=== PATIENT | female | born 1970 | race Caucasian/White ===

== ENCOUNTER 2017-05-06 12:04 | Inpatient (IN) | payer BC ==
[2017-05-06] MEDS ORDERED: NALOXONE 0.4 MG/ML 1 ML VIAL IV PRN ×2 (12:25→14:54)
--- NOTE | 2017-05-06 12:30 | ED ---
General Adult HPI - General Chief complaint: Abdominal Pain Stated complaint: appendicitis Time Seen by Provider: 05/06/17 12:08 Source: patient, RN notes reviewed, old records reviewed Mode of arrival: EMS Limitations: no limitations - History of Present Illness Initial comments: 46-year-old female presenting with lower abdominal pain. Patient was transferred from outside hospital. She was found to have acute appendicitis. Symptoms have been present since yesterday. She last ate at yesterday at approximately 8 PM. She did have some nausea, as well as several episodes of diarrhea. Denies significant vomiting. Patient has been febrile. She has past surgical history of cholecystectomy. Patient denies any chest pain or shortness of breath. Denied any other complaints besides lower abdominal pain which was dull aching in nature. Described as bilateral however worse on the right. - Related Data Home Medications Medication Instructions Recorded Confirmed Lisinopril [Zestril] 20 mg PO DAILY 11/28/15 12/01/15 buPROPion XL [Wellbutrin Xl] 150 mg PO DAILY 11/28/15 12/01/15 Raloxifene [Evista] 60 mg PO DAILY 12/01/15 12/01/15 Allergies Allergy/AdvReac Type Severity Reaction Status Date / Time Penicillins Allergy Rash/Hives Verified 05/06/17 12:20 ibuprofen AdvReac Nausea & Verified 05/06/17 12:20 Vomiting Review of Systems ROS Statement: Those systems with pertinent positive or pertinent negative responses have been documented in the HPI. ROS Other: All systems not noted in ROS Statement are negative. Past Medical History Past Medical History: Hypertension Additional Past Medical History / Comment(s): vertigo, Lobular Carcinoma in situ of right breast, 2 lumps detected in left breast. History of Any Multi-Drug Resistant Organisms: None Reported Past Surgical History: Section, Cholecystectomy Additional Past Surgical History / Comment(s): uterine polyps removed, uterine ablation, lumpectomy right breast September 2014 Past Anesthesia/Blood Transfusion Reactions: No Reported Reaction Past Psychological History: No Psychological Hx Reported Smoking Status: Never smoker Past Alcohol Use History: Occasional Past Drug Use History: None Reported - Past Family History Mother Family Medical History: Cancer Additional Family Medical History / Comment(s): lung cancer General Exam Limitations: no limitations General appearance: alert, in no apparent distress Head exam: Present: atraumatic, normocephalic Eye exam: Present: normal appearance, PERRL ENT exam: Present: normal exam Neck exam: Present: normal inspection. Absent: tenderness, meningismus Respiratory exam: Present: normal lung sounds bilaterally. Absent: respiratory distress Cardiovascular Exam: Present: regular rate, normal rhythm GI/Abdominal exam: Present: soft, tenderness (Bilateral lower quadrants, worse on the right). Absent: guarding, rebound Extremities exam: Present: normal inspection, normal capillary refill. Absent: pedal edema Neurological exam: Present: alert, oriented X3. Absent: motor sensory deficit Psychiatric exam: Present: normal affect, normal mood Skin exam: Present: warm, dry, intact. Absent: cyanosis, diaphoretic Course Vital Signs 05/06/17 12:10 Temperature 100.3 F H Pulse Rate 110 H Respiratory 16 Rate Blood Pressure 128/75 O2 Sat by Pulse 95 Oximetry Medical Decision Making - Medical Decision Making 46-year-old female transferred with acute appendicitis. CT reveals dilated appendix at 9.5 mm with adjacent fat stranding consistent with acute appendicitis. White blood cell count elevated at 13.8, hemoglobin stable 14.3, platelets 307, potassium 3.4, sodium 138, creatinine normal. Case is discussed with Dr. Burris, he will accept admission, patient will be taken to the operating room from the emergency department. Disposition Clinical Impression: Acute appendicitis Disposition: ADMITTED IP TO THIS [facility] Condition: Stable Referrals: Nonstaff,Physician [Primary Care Provider] - 1-2 days Decision to Admit Reason: Admit from EC Decision Date: 05/06/17 Decision Time: 12:30
[2017-05-06] MEDS: SODIUM CHLORIDE 0.9% 1,000 ML IV SCH ×2 (12:31→16:56)
[2017-05-06] MEDS ORDERED: IV FLUID CONTINUATION 1,000 ML IV ONE (12:45)
--- NOTE | 2017-05-06 12:56 | P.GSHP ---
History of Present Illness H&P Date: 05/06/17 Chief Complaint: Appendicitis This a 46-year-old female who was transferred from [facility]. Patient had a 24 hour history of abdominal pain nausea. She underwent CAT scan at the [facility] found evidence of acute appendicitis. Patient states that she has some pain in the right lower quadrant. Past Medical History Past Medical History: Hypertension Additional Past Medical History / Comment(s): vertigo, Lobular Carcinoma in situ of right breast, 2 lumps detected in left breast. History of Any Multi-Drug Resistant Organisms: None Reported Past Surgical History: Section, Cholecystectomy Additional Past Surgical History / Comment(s): uterine polyps removed, uterine ablation, lumpectomy right breast September 2014 Past Anesthesia/Blood Transfusion Reactions: No Reported Reaction Past Psychological History: No Psychological Hx Reported Smoking Status: Never smoker Past Alcohol Use History: Occasional Past Drug Use History: None Reported - Past Family History Mother Family Medical History: Cancer Additional Family Medical History / Comment(s): lung cancer Medications and Allergies Home Medications Medication Instructions Recorded Confirmed Type Lisinopril [Zestril] 20 mg PO DAILY 11/28/15 05/06/17 History buPROPion HCL [Wellbutrin SR] 150 mg PO BID 05/06/17 05/06/17 History Allergies Allergy/AdvReac Type Severity Reaction Status Date / Time Penicillins Allergy Rash/Hives Verified 05/06/17 12:50 ibuprofen AdvReac Nausea & Verified 05/06/17 12:50 Vomiting Surgical - Exam Vital Signs Temp Pulse Resp BP Pulse Ox 100.3 F H 110 H 16 128/75 95 05/06/17 12:10 05/06/17 12:10 05/06/17 12:10 05/06/17 12:10 05/06/17 12:10 - General well developed, no distress - Eyes PERRL - ENT normal pinna - Neck no masses - Respiratory normal expansion - Cardiovascular Rhythm: regular - Abdomen Mild right lower quadrant tenderness. Her is no rebound or guarding. Abdomen: soft Assessment and Plan Assessment: Acute appendicitis. Patient will undergo laparoscopic appendectomy.
[2017-05-06] MEDS ORDERED: DEXAMETHASONE SOD PHOSPHATE 10 MG/ML 1 ML VIAL IV ONE (13:19)
[2017-05-06] MEDS ORDERED: ONDANSETRON 4 MG/2 ML VIAL IVP ONE (13:19)
[2017-05-06] MEDS ORDERED: HEPARIN SODIUM,PORCINE 5,000 UNIT/ML 1 ML VIAL SQ ONE (13:20)
[2017-05-06] MEDS ORDERED: NEOSTIGMINE 1 MG/ML 10 ML VIAL ONE (13:28)
[2017-05-06] MEDS ORDERED: LIDOCAINE 1% INJ 10MG/ML (20 ML MDV) ONE (13:28)
[2017-05-06] MEDS ORDERED: fentaNYL (PF) 50 MCG/ML 2 ML AMP ONE (13:28)
[2017-05-06] MEDS ORDERED: CLINDAMYCIN 150 MG/ML 4 ML VIAL ONE (13:28)
[2017-05-06] MEDS ORDERED: GLYCOPYRROLATE 0.2 MG/ML 2 ML VIAL ONE (13:28)
[2017-05-06] MEDS ORDERED: PROPOFOL 10 MG/ML 20 ML VIAL IV ONE (13:28)
[2017-05-06] MEDS ORDERED: ROCURONIUM BROMIDE 10 MG/ML 10 ML VIAL IV ONE (13:28)
[2017-05-06] MEDS ORDERED: MIDAZOLAM 2 MG/2 ML VIAL ONE (13:28)
[2017-05-06] MEDS ORDERED: SUCCINYLCHOLINE CHLORIDE 100 MG/5 ML SYR IV ONE (13:28)
[2017-05-06] MEDS: CLINDAMYCIN 600 MG in DEXTROSE 5% IN WATER 50 ML IVPB STA ×4 (13:42→13:53)
[2017-05-06] MEDS ORDERED: BUPIVACAINE (PF) 0.5% 30 ML VIAL SQ ONE ×2 (13:59)
[2017-05-06] MEDS ORDERED: LACTATED RINGERS 1,000 ML IV ONE ×2 (14:35→14:54)
[2017-05-06] MEDS ORDERED: HYDROmorphone 0.5 MG/0.5 ML SYRINGE IVP ONE ×2 (14:53→15:04)
[2017-05-06] MEDS ORDERED: ONDANSETRON 4 MG/2 ML VIAL IVP PRN (14:54)
[2017-05-06] MEDS ORDERED: HYDROmorphone 2 MG/ML 1 ML SYRINGE IVP PRN (14:54)
--- NOTE | 2017-05-06 14:59 | P.OP ---
Date of Procedure: 05/06/17 Preoperative Diagnosis: Acute appendicitis Postoperative Diagnosis: Acute appendicitis Procedure(s) Performed: Laparoscopic appendectomy Anesthesia: CORINE Surgeon: Santino Burris Estimated Blood Loss (ml): 5 Pathology: other (Appendix) Condition: stable Disposition: PACU Description of Procedure: Anuradha patient's placed on the operating table in the supine position. The patient received general anesthesia. The abdomen was prepped and draped in the usual sterile fashion. The skin was anesthetized 1% local Xylocaine at the trocar sites. Using an 11 blade the skin was incised at the umbilicus. The umbilicus was grasped with a Nickolas clamp and then a Veress needle was placed into the peritoneal cavity. Position of the Veress needle was confirmed with positive drop test. After adequate insufflation a 5 mm trocar was placed into the peritoneal cavity. The abdomen was further insufflated. And then the laparoscope was placed in the peritoneal cavity. Next a 5 mm trocar was placed in the midline suprapubic position. And then a 10 mm trocar was placed in the midline epigastric position. The patient was rotated with the right side up and in Trendelenburg. The appendix was visualized. The appendix appeared to be inflamed. The appendix was grasped and then using the Harmonic scissors the mesoappendix was divided. A PDS Endoloop was then placed around the base of the appendix. And then the appendix was divided using Harmonic scissors. The appendix was placed into an Endo Catch and brought out through the 10 mm trocar site. The abdomen was irrigated. There is no bleeding seen. The trochars withdrawn. The skin was closed interrupted 3-0 Monocryl suture. Dermabond dressing was applied. Patient was sent to recovery room in stable condition.
[2017-05-06] MEDS: KETOROLAC 30 MG/ML 1 ML VIAL IVP SCH ×2 (16:55→21:17)
[2017-05-06] MEDS: DOCUSATE 100 MG CAP PO SCH (21:17)
[2017-05-06] MEDS: buPROPion SR 150 MG TABLET.ER PO SCH (21:17)
--- NOTE | 2017-05-06 21:47 | CONS ---
CONSULTATION REASON FOR CONSULTATION: Advice regarding hypertension and other multiple medical issues, requested by Dr. Burris. HISTORY OF PRESENT ILLNESS: This 46-year-old woman with a past medical history of hypertension, history of vertigo, history of lobular carcinoma in situ of the right breast, history of appendectomy, section, being followed by Dr. Anaya in the outpatient setting, was admitted after laparoscopic appendectomy. There is no history of any chest pain, no history of palpitations, no history of headache, loss of consciousness, nausea, vomiting, diarrhea, fever, rigor or chills at this time. PAST MEDICAL HISTORY: 1. Hypertension. 2. Vertigo. 3. Lobular carcinoma. 4. section. 5. History of cholecystectomy. MEDICATIONS: Medications prior to admission include: 1. Wellbutrin SR 150 mg p.o. b.i.d. 2. Zestril 20 mg p.o. daily. ALLERGIES: 1. PENICILLIN. 2. IBUPROFEN. FAMILY HISTORY: History of lung cancer in the family. SOCIAL HISTORY: History of occasional alcohol. No history of smoking. REVIEW OF SYSTEMS: ENT: No diminished hearing. No diminished vision. CARDIOVASCULAR SYSTEM: No angina, palpitations. RESPIRATORY SYSTEM: No cough, hemoptysis. GI: No nausea, vomiting, diarrhea. : No dysuria or retention. NERVOUS SYSTEM: No numbness, weakness. ALLERGY/IMMUNOLOGY: No asthma, hayfever. MUSCULOSKELETAL: As mentioned earlier. HEMATOLOGY/ONCOLOGY: No history of anemia. ENDOCRINE: No history of diabetes, hypothyroidism. CONSTITUTIONAL: As mentioned earlier. DERMATOLOGY: Negative. RHEUMATOLOGY: Negative. PSYCHIATRY: As mentioned earlier. PHYSICAL EXAMINATION: Patient is alert, oriented x3. Pulse 95, blood pressure 104/59, respiration 18, temperature 98.5, pulse ox 94% on room air. HEENT: Conjunctivae normal. NECK: No jugular venous distention. No carotid bruit. No lymph node enlargement. CARDIOVASCULAR SYSTEM: S1, S2 muffled. No S3. No S4. RESPIRATORY SYSTEM: Breath sounds diminished at the bases. No rhonchi. No crackles. ABDOMEN: Soft. Status post surgery. LEGS: No edema. No swelling. NERVOUS SYSTEM: Higher functions as mentioned earlier. Moves all 4 limbs. No focal motor symptoms. LYMPHATICS: No lymph node palpable in neck, axillae or groin. SKIN: No ulcer, rash, bleeding. JOINTS: No active deforming arthropathy. LABS/INVESTIGATIONS: Not available. ASSESSMENT: 1. Status post laparoscopic appendectomy for appendicitis. 2. History of hypertension. 3. History of vertigo. 4. History of lobular carcinoma in situ of the breast. 5. History of cholecystectomy. RECOMMENDATIONS AND DISCUSSION: In this 46-year-old woman, admitted after surgery, at this time I recommend to continue current medications, continue symptomatic treatment. I recommend resuming the home medications. The patient is on lisinopril and bupropion. Otherwise, incentive spirometry. DVT prophylaxis. Will follow the patient closely with you. The patient may be asked to follow up with the primary physician closely. Thank you, Dr. Burris, for letting us participate in the care of this patient. MMODL / IJN: [id number] /
[2017-05-07] MEDS: KETOROLAC 30 MG/ML 1 ML VIAL IVP SCH ×2 (03:30→10:51)
[2017-05-07] MEDS: HYDROcodone/APAP 5-325MG 1 EACH TAB PO PRN ×2 (07:19→13:33)
[2017-05-07] MEDS: DOCUSATE 100 MG CAP PO SCH (07:24)
[2017-05-07] MEDS: buPROPion SR 150 MG TABLET.ER PO SCH (07:24)
[2017-05-07 08:43] VITALS: BP 110/61; PULSE 87; RESP 18; TEMP 98
[2017-05-07] MEDS ORDERED: ENOXAPARIN 40 MG/0.4 ML SYRINGE SQ SCH (09:00)
[2017-05-07] MEDS ORDERED: LISINOPRIL 20 MG TAB PO SCH (09:00)
[2017-05-07] MEDS: SODIUM CHLORIDE 0.9% 1,000 ML IV SCH (10:48)
--- NOTE | 2017-05-07 10:57 | P.DS ---
Providers Date of admission: 05/06/17 12:26 Expected date of discharge: 05/07/17 Attending physician: Santino Burris Consults: 05/06/17 14:54 Consult Physician Routine Consulting Provider: Jazmine Pisano Consult Reason/Comments: Medical management Do you want consulting provider notified?: Yes Primary care physician: [facility] Course: 46-year-old female who was transferred from [facility] who is being seen for a chief complaint of 24-hour abdominal discomfort with nausea vomiting. Patient underwent CAT scan at the hospital which showed evidence of an acute appendicitis. Patient states the pain was in the right lower quadrant. Patient was seen by surgical service. Patient does have a past surgical history of a cholecystectomy. Patient elected to undergo on May 06 laparoscopic appendectomy for acute appendicitis. There were no postop events. Surgical site dry. Dermabond dressings to the surgical site. Patient was felt to be hemodynamically stable and appropriate proceed with a discharge to home Impression discharge diagnoses Persistent right lower quadrant abdominal pain suspect due to acute appendicitis CAT scan abdomen and pelvis evidence of an acute appendicitis Postop May 06 laparoscopic appendectomy for acute appendicitis The above impression and plan of care have been discussed and directed by signing physician. Carlotta Eugene nurse practitioner acting as scribe for signing physician. Patient Condition at Discharge: Stable Plan - Discharge Summary Discharge Rx Participant: Yes New Discharge Prescriptions: New HYDROcodone/APAP 5-325MG [[place] 5-325] 2 each PO Q6HR PRN #15 tab PRN Reason: Moderate To Severe Pain Acetaminophen Tab [Tylenol Tab] 650 mg PO Q4H PRN #30 tablet PRN Reason: Mild Breakthrough Pain Docusate [Colace] 100 mg PO DAILY PRN #30 capsule PRN Reason: Constipation Continue Lisinopril [Zestril] 20 mg PO DAILY buPROPion HCL [Wellbutrin SR] 150 mg PO BID Discharge Medication List Lisinopril [Zestril] 20 mg PO DAILY 11/28/15 [History] buPROPion HCL [Wellbutrin SR] 150 mg PO BID 05/06/17 [History] Acetaminophen Tab [Tylenol Tab] 650 mg PO Q4H PRN #30 tablet 05/07/17 [Rx] Docusate [Colace] 100 mg PO DAILY PRN #30 capsule 05/07/17 [Rx] HYDROcodone/APAP 5-325MG [[place] 5-325] 2 each PO Q6HR PRN #15 tab 05/07/17 [Rx] Follow up Appointment(s)/Referral(s): Nonstaff,Physician [REFERRING] - 1-2 days Santino Burris MD [STAFF PHYSICIAN] - 1 Week Activity/Diet/Wound Care/Special Instructions: No tub bath for six weeks. Shower daily. No lifting over 10 pounds for the next 6 weeks. May use ice packs to surgical site. No driving while taking narcotic for pain. Discharge Disposition: HOME SELF-CARE
--- NOTE | 2017-05-07 12:56 | PN ---
PROGRESS NOTE DATE OF SERVICE: 05/07/2017 This is a 46-year-old woman who was admitted after laparoscopic appendectomy for acute appendicitis, improving significantly. No chest pain. No palpitations. No fever. PHYSICAL EXAM: Alert and oriented x3. Pulse 80, blood pressure 105/60, respirations 16, temperature is 97.4, pulse ox 98% room air. HEENT: Normal. NECK: No jugular venous distension. CARDIOVASCULAR: S1, S2, muffled. RESPIRATORY: Breath sounds diminished at the bases, no rhonchi, no crackles. Abdomen is soft, status post surgery. LEGS: No edema. No swelling. CENTRAL NERVOUS SYSTEM: No focal deficits. LABS: Not available. ASSESSMENT: 1. Status post laparoscopic appendectomy for appendicitis. 2. History of hypertension. 3. History of vertigo. 4. History of lobular carcinoma in situ of the breast. 5. History of cholecystectomy. RECOMMENDATION: Recommend to continue with the current management and symptomatic treatment. Continue with incentive spirometry and DVT prophylaxis. Will resume the home medications when the patient is discharged and follow up closely with primary physician in the outpatient setting. Thank you, Dr. Burris. MMEPIFANIOL / MUN: [id number] /
== END 2017-05-07 13:48 | disposition home or self-care (01) | DRG 343 ==
LOC: EC 12:04 → 2ORWHC 12:26 → 5MS5E 15:02
PROVIDERS: ADMIT Surgery; ATTEND Surgery
PROC: 0DTJ4ZZ Resection of Appendix, Percutaneous Endoscopic Approach (ICD-10-PCS; principal; 2017-05-06 11:00)
DX: K35.80 Unspecified acute appendicitis (principal); I10 Essential (primary) hypertension; Z79.899 Other long term (current) drug therapy; Z80.1 Family history of malignant neoplasm of trachea, bronchus and lung; Z85.3 Personal history of malignant neoplasm of breast; Z88.0 Allergy status to penicillin; Z88.6 Allergy status to analgesic agent
CPT/HCPCS: 88304; 99285

== ENCOUNTER → 2017-12-05 | Outpatient (CLI) | payer BC ==
[2017-12-05 14:41] VITALS: BP 144/84; PULSE 93; BMI 29.6
--- NOTE | 2017-12-05 15:09 | P.GSHP ---
History of Present Illness H&P Date: 12/05/17 The patient is a 47-year-old white female who is status post bilateral mastectomies approximately December 2015. 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 Her pathology reports are not present at this time and we will request them to be obtained from [facility]. She had immediate reconstruction at the time of her surgery. She did not have any chemotherapy nor did she have any radiation therapy. She is not taking any hormonal therapy. She was seen by medical oncology and this was not recommended. The patient complains at this time of pain in her right chest wall. Patient has a change in her right chest wall, with some asymetry of the implant and some pulling in her right chest wall. The patient did have BRCA1 gene testing done and this was negative. Patient was taking raloxifene for approximately 1 year prior to the diagnosis of cancer. After her surgery she no longer was recommended to take raloxifene. STAGE 0 on the right side unsure of Stage on the left side Family History: mother: lung Hormonal history: menarche: 11 : 3, 2 children, first at 24, breast fed: no ablation at 39 without periods after that BCP: no hormone: none Past Surgical History: 1. gallbladder 2. blateral mastectomy with reconstruction 3. appendix 4. 5. right lumpectomy prior to mastectomy 6. uterine ablation Past Medical History: 1. HTN Social History: smoke: no alcohol: weekends drugs: no - Constitutional Constitutional: Reports sweats - EENT Eyes: denies blurred vision, denies pain Ears: deny: decreased hearing, tinnitus Ears, nose, mouth and throat: Denies headache, Denies sore throat - Breasts Breasts: bilateral: as per HPI - Cardiovascular Cardiovascular: Reports high blood pressure - Respiratory Respiratory: Denies cough, Denies 7 - Gastrointestinal Gastrointestinal: Denies abdominal pain, Denies diarrhea, Denies nausea, Denies vomiting - Genitourinary (Female) Genitourinary: Denies dysuria, Denies hematuria - Musculoskeletal Musculoskeletal: Denies myalgias - Integumentary Integumentary: Denies pruritus, Denies rash - Neurological Neurological: Denies numbness, Denies weakness - Psychiatric Psychiatric: Reports anxiety, Reports depression - Endocrine Endocrine: Denies fatigue, Denies weight change - Hematologic/Lymphatic Comment: none - Allergic/Immunologic Comment: as above Past Medical History Past Medical History: Cancer, Hypertension Additional Past Medical History / Comment(s): vertigo, Lobular Carcinoma in situ of right breast, 2 lumps detected in left breast. (HAD BOTH REMOVED) History of Any Multi-Drug Resistant Organisms: None Reported Past Surgical History: Appendectomy, Section, Cholecystectomy Additional Past Surgical History / Comment(s): uterine polyps removed, uterine ablation, MARIFER MASECTOMIES/RECONSTRUCTIVE SX/IMPLANTS, 2 C-SECTIONS, Past Anesthesia/Blood Transfusion Reactions: No Reported Reaction Smoking Status: Never smoker - Past Family History Mother Family Medical History: Cancer Additional Family Medical History / Comment(s): -lung cancer Father History Unknown: Yes Medications and Allergies Home Medications Medication Instructions Recorded Confirmed Type Lisinopril [Zestril] 20 mg PO DAILY 11/28/15 05/06/17 History buPROPion HCL [Wellbutrin SR] 150 mg PO BID 05/06/17 05/06/17 History Acetaminophen Tab [Tylenol Tab] 650 mg PO Q4H PRN #30 tablet 05/07/17 Rx Docusate [Colace] 100 mg PO DAILY PRN #30 capsule 05/07/17 Rx HYDROcodone/APAP 5-325MG [[place] 2 each PO Q6HR PRN #15 tab 05/07/17 Rx 5-325] Levofloxacin [Levaquin] 500 mg PO DAILY #7 tab 05/07/17 Rx Allergies Allergy/AdvReac Type Severity Reaction Status Date / Time Penicillins Allergy Rash/Hives Verified 05/06/17 15:16 ibuprofen AdvReac Nausea & Verified 05/06/17 15:16 Vomiting Surgical - Exam - General well developed, well nourished, no distress - Eyes normal ocular movement, no icteric - ENT no hearing loss, no congestion - Neck no masses, trachea midline - Respiratory normal respiratory effort, clear to auscultation - Cardiovascular Rhythm: regular Heart Sounds: normal: S1, S2 - Abdomen Abdomen: soft, non tender, no guarding, no rigid, no rebound - Neurologic no disoriented, no combative - Psychiatric oriented to time, oriented to person, oriented to place, speech is normal, memory intact Breast examination: Right breast: The patient has a reconstructed right breast it is somewhat asymmetric to the left breast but there is no evidence of any recurrent cancer or nodularity of concern within the right chest wall Right axilla: No adenopathy of concern Left breast: The patient has a reconstructed left breast, there is no evidence of any recurrent cancer nodularity of concern within the left chest wall Left axilla: No adenopathy of concern Assessment and Plan Assessment: Impression: 1. Patient status post bilateral mastectomies with bilateral reconstruction 2. The muscle flexes moving the implant making it uncomfortable for the patient , the left does not flex involuntarily 3. Aching discomfort in the right chest wall 4. Hypertension Plan: 1. The patient is interested in seeking a opinion from a second plastic surgeon , we have discussed the possibility of a TRAM flap 2. Medical management of hypertension 3. At this time the patient does not have any evidence of recurrent cancer 4. Have requested that her pathology reports be obtained from [facility] 5. Follow up in 6 months for exam [facility], Dr. Arturo Pérez
== END | disposition home or self-care (01) ==
LOC: WWCWWP 14:13
PROVIDERS: ATTEND Surgery
DX: Z53.9 Procedure and treatment not carried out, unspecified reason (principal)

== ENCOUNTER → 2017-12-16 | Outpatient (CLI) | payer BC ==
--- NOTE | 2017-12-16 18:09 | P.PN ---
Progress Note - Text Progress Note Date: 12/16/17 The patient and her returned today for discussion regarding her prior bilateral mastectomies and the stage of the disease. 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 She is interested in seeking plastic surgical consultation for revision of her reconstruction. She has an appointment with Dr. Kraft next month. I can be of any further assistance be happy to speak with them at this time the patient has no evidence of recurrent disease. Cc: Nick See [facility], Dr. Arturo Pérez
== END ==
LOC: WWCWWP 16:27
PROVIDERS: ATTEND Surgery
DX: Z53.9 Procedure and treatment not carried out, unspecified reason (principal)

== ENCOUNTER → 2018-06-05 | Outpatient (CLI) | payer BC ==
[2018-06-05 09:03] VITALS: BP 132/83; PULSE 88; RESP 16; TEMP 97.9; BMI 29.6
--- NOTE | 2018-06-05 09:43 | P.PN ---
Subjective Progress Note Date: 06/05/18 Principal diagnosis: The patient is a 47 year old white female status post bilateral mastectomies in approximately December 2015. 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 The patient did not have any chemotherapy or radiation therapy. The patient had been on raloxifene preoperatively secondary to a prior right sided biopsy which showed LCIS. The patient had immediate reconstruction following her mastectomies. However she wished to have evaluation secondary to dissatisfaction with the reconstruction. She did have consultation with a plastic surgeon at [facility] regarding a NATY flap. She was informed that she would be in the ICU for several days postprocedure and approximately 5 days in the hospital. At this time she is contemplating whether or not she would like to proceed with that procedure. The patient has bilateral chest wall discomfort due to related to the implants. She was told that the plastic surgeon Mac implants are encapsulated and this will be continued to get worse. The pain was described as a muscle ache on the right side the majority is on the right side and originates in the upper outer quadrant area. It is a stabbing sensation. The left side is intermittent discomfort. The pain is worse with exercise. It also is worse if she does not wear bra at night. The patient did have BRCA1 testing and this was negative. The patient states there is an area on the right chest wall which feels mobile and masslike following exercise. The patient has no new nodularity on her chest wall and no concerns of recurrent disease. Family history: mother: lung brother: melanoma Hormonal History: menarche: 11 : 3, 2 children, first at 24, breast fed: no uterine ablation at 39 without periods after that BCP: no hormones: none Past surgical history: 1. Cholecystectomy 2. Bilateral mastectomy with reconstruction. 3. Appendectomy 4. 5. Right breast lumpectomy prior to bilateral mastectomy 6. Uterine ablation Past medical history: 1. Hypertension Social history: Smoke: Negative Alcohol: Weekends Drugs: Negative Objective - Vital Signs Vital signs: Vital Signs Temp 97.9 F 06/05/18 08:56 Pulse 88 06/05/18 08:56 Resp 16 06/05/18 08:56 BP 132/83 06/05/18 08:56 Pulse Ox 98 06/05/18 08:56 Intake & Output 06/04/18 06/05/18 06/05/18 18:59 06:59 18:59 Weight 80.739 kg - Exam BMI 29.6 - Constitutional General appearance: Present: average body habitus - EENT Eyes: Present: EOMI ENT: Present: hearing grossly normal - Neck Neck: Present: normal ROM - Respiratory Respiratory: - Cardiovascular Rhythm: regular Heart sounds: - Gastrointestinal Gastrointestinal Comment(s): no guarding or rebound General gastrointestinal: Present: soft - Integumentary Integumentary: Present: normal, normal turgor - Musculoskeletal Musculoskeletal: Present: gait normal - Psychiatric Psychiatric: Present: A&O x's 3, appropriate affect, intact judgment & insight - Additional findings Additional findings: breast exam: right breast: Multi-positional exam of the chest wall reveals implant in place no evidence of recurrent cancer some probable capsulation around the implant Mode axilla: No adenopathy of concern Left breast: Multi-positional exam of the chest wall reveals implant in place no evidence of recurrent cancer, questionable encapsulation around the left implant Left axilla: No adenopathy of concern Assessment and Plan Assessment: Impression: 1. Patient status post bilateral mastectomies with bilateral reconstruction 2. The muscle flexes moving the implant making it uncomfortable for the patient with exercise or flexing of the pectoralis muscle the plate moves involuntarily the left does not move involuntarily 3. Aching discomfort in the right chest wall 4. Hypertension 5. No evidence of recurrent cancer 6. would like reports form DR. Gonzalez Plan: 1. The patient has recently seen a plastic surgeon and [place] [facility] who discussed with her the possibility of a NATY flap. At this time the patient wants to wait on this 2. Medical management of hypertension 3. Follow-up in 6 months 4. Patient is anything of concern we'll see her sooner Cc: Nick See [facility], Dr. Arturo Pérez
== END | disposition home or self-care (01) ==
LOC: WWCWWP 08:50
PROVIDERS: ATTEND Surgery
DX: Z53.9 Procedure and treatment not carried out, unspecified reason (principal)

== ENCOUNTER → 2018-12-05 | Outpatient (CLI) | payer BC ==
[2018-12-05 11:14] VITALS: BP 157/92; PULSE 77; RESP 18; TEMP 97.9; BMI 28.8
--- NOTE | 2018-12-05 11:36 | P.PN ---
Subjective Progress Note Date: 12/05/18 The patient is a 48 year old white female status post bilateral mastectomies in approximately December 2015. 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 The patient did not have any chemotherapy or radiation therapy. The patient had been on raloxifene preoperatively secondary to a prior right sided biopsy which showed LCIS. The patient is not taking any antiestrogen agents at this time. The patient had immediate reconstruction following her mastectomies. However she wished to have evaluation secondary to dissatisfaction with the reconstruction. She did have consultation with a plastic surgeon at [facility] regarding a NATY flap. She was informed that she would be in the ICU for several days postprocedure and approximately 5 days in the hospital. At this time she is contemplating whether or not she would like to proceed with that procedure. The patient has bilateral chest wall discomfort due to related to the implants. She was told that the plastic surgeon felt that the implants were encapsulated and this will be continued to get worse. The pain is described as a muscle ache on the right side the majority is on the right side and originates in the upper outer quadrant area. It is a stabbing sensation at times and otherwise is a dull muscle ache. The left side is intermittent discomfort. The pain is worse with exercise. It also is worse if she does not wear bra at night. The patient did have BRCA1 testing and this was negative. The patient states there is an area on the right chest wall which feels mobile and masslike following exercise. The patient has no new nodularity on her chest wall and no concerns of recurrent disease. The patient has no new changes in her pain, with the changes in the right chest wall. Again at this time she is not interested in pursuing the reconstructive procedure at [place]. Family history: mother: lung brother: melanoma Hormonal History: menarche: 11 : 3, 2 children, first at 24, breast fed: no uterine ablation at 39 without periods after that BCP: no hormones: none Past surgical history: 1. Cholecystectomy 2. Bilateral mastectomy with reconstruction. 3. Appendectomy 4. 5. Right breast lumpectomy prior to bilateral mastectomy 6. Uterine ablation Past medical history: 1. Hypertension Social history: Smoke: Negative Alcohol: Weekends Drugs: Negative Review of systems: HEENT: Negative Lungs: Negative Heart: Negative GI: Negative : Status post uterine ablation at 39 Musculoskeletal: Right chest wall discomfort with exercise related to implants otherwise negative Neurologic: Negative Hematologic: Negative Endocrine: Negative Psychiatric: Negative ALLERGIES: Penicillin and ibuprofen Objective - Vital Signs Vital signs: Vital Signs Temp 97.9 F 12/05/18 11:10 Pulse 77 12/05/18 11:10 Resp 18 12/05/18 11:10 BP 157/92 12/05/18 11:10 Pulse Ox 100 12/05/18 11:10 Intake & Output 12/04/18 12/05/18 12/05/18 18:59 06:59 18:59 Weight 78.471 kg - Exam BMI 28.8 - Constitutional General appearance: Present: average body habitus - EENT Eyes: Present: EOMI ENT: Present: hearing grossly normal - Neck Neck: Present: normal ROM - Respiratory Respiratory: bilateral: CTA - Cardiovascular Rhythm: regular Heart sounds: normal: S1, S2 - Gastrointestinal General gastrointestinal: Present: soft - Integumentary Integumentary: Present: normal turgor - Musculoskeletal Musculoskeletal: Present: gait normal - Psychiatric Psychiatric: Present: A&O x's 3, appropriate affect, intact judgment & insight - Additional findings Additional findings: breast exam: status post bilaterl mastecomy right chest wall: Right breast implant in place, this improves when she flexes the pectoralis muscle, she has been told this is encapsulated although the area feels soft no evidence of disease in the soft tissues Right axilla: No adenopathy of concern Left chest wall: Left breast implant in place this improves when she flexes the pectoralis muscle but not as much as the right side no dominant masses or nodules of concern no evidence of disease Left axilla: No adenopathy of concern Assessment and Plan Assessment: Impression: 1. Prior left breast DCIS 2. Prior right breast LCIS 3. Bilateral breast reconstruction patient has some difficulty with movement of the implants when she flexes her muscles 4. Patient has been seen by plastic surgery a [place] regarding revision of the reconstruction and at this time wishes to wait 5. family history of cancer 6. melanoma 7. At the present time patient is not taking any antiarrhythmic normal medication Plan: 1. Continue close surveillance 2. Plastic surgical intervention when the patient wishes to do so 3. Medical management of medical conditions CC: DR. Harry Flores ( [place])
== END ==
LOC: WWCWWP 10:45
PROVIDERS: ATTEND Surgery
DX: Z53.9 Procedure and treatment not carried out, unspecified reason (principal)

== ENCOUNTER → 2019-06-05 | Outpatient (CLI) | payer BC ==
--- NOTE | 2019-06-05 11:55 | P.PN ---
Subjective Progress Note Date: 06/05/19 Principal diagnosis: bilateral mastecotomy/ DCIS left breast/right LCIS The patient is a 48 year old white female status post bilateral mastectomies in approximately December 2015. 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 The patient did not have any chemotherapy or radiation therapy. The patient had been on raloxifene preoperatively secondary to a prior right sided biopsy which showed LCIS. The patient is not taking any antiestrogen agents at this time. The patient had immediate reconstruction following her mastectomies. However she wished to have evaluation secondary to dissatisfaction with the reconstruction. She did have consultation with a plastic surgeon at [facility] regarding a NATY flap. She was informed that she would be in the ICU for several days postprocedure and approximately 5 days in the hospital. At this time she is contemplating whether or not she would like to proceed with that procedure. She then saw DR. Cardenas in November. He recommended the implants be exchanged. She is planning to do this in the future. The patient has bilateral chest wall discomfort due to related to the implants. She was told that the plastic surgeon felt that the implants were encapsulated and this will be continued to get worse. The pain is described as a muscle ache on the right side the majority is on the right side and originates in the upper outer quadrant area. It is a stabbing sensation at times and otherwise is a dull muscle ache. The left side is intermittent discomfort. The pain is worse with exercise. It also is worse if she does not wear bra at night. The patient did have BRCA1 testing and this was negative. The patient states there is an area on the right chest wall which feels mobile and masslike following exercise, feels this is related to the implant. The patient has no new nodularity on her chest wall and no concerns of recurrent disease. The patient has no new changes in her pain. Again at this time she is not interested in pursuing the reconstructive procedure at [place]. She has been seen by Dr. Saunders and will most likely have reconstruction with him. She is not taking raloxifene/ or medication for the breast cancer at this time. She did not have any radiation therapy, and has not had any chemotherapy. Family history: mother: lung brother: melanoma Hormonal History: menarche: 11 : 3, 2 children, first at 24, breast fed: no uterine ablation at 39 without periods after that BCP: no hormones: none Past surgical history: 1. Cholecystectomy 2. Bilateral mastectomy with reconstruction. 3. Appendectomy 4. 5. Right breast lumpectomy prior to bilateral mastectomy 6. Uterine ablation Past medical history: 1. Hypertension Social history: Smoke: Negative Alcohol: Weekends Drugs: Negative Review of systems: HEENT: Negative Lungs: Negative Heart: Negative GI: Negative : Status post uterine ablation at 39 Musculoskeletal: Right chest wall discomfort with exercise related to implants otherwise negative Neurologic: Negative Hematologic: Negative Endocrine: Negative Psychiatric: Negative ALLERGIES: Penicillin and ibuprofen Objective - Vital Signs Vital signs: Intake & Output 06/04/19 06/05/19 06/05/19 18:59 06:59 18:59 Weight 79.379 kg - Constitutional General appearance: Present: average body habitus - EENT Eyes: Present: EOMI ENT: Present: hearing grossly normal - Neck Neck: Present: normal ROM - Respiratory Respiratory: bilateral: CTA - Cardiovascular Rhythm: regular Heart sounds: normal: S1, S2 - Gastrointestinal General gastrointestinal: Present: normal bowel sounds, soft - Integumentary Integumentary: Present: normal turgor - Musculoskeletal Musculoskeletal: Present: gait normal - Psychiatric Psychiatric: Present: A&O x's 3, appropriate affect, intact judgment & insight - Additional findings Additional findings: Breast exam: BRA 38C inspection: changes related to reconstruction and bilateral mastectomy palpation: Right breast: Incision clean and dry from prior surgery the right breast implant moves with movement of the pectoralis muscle. Right axilla: No adenopathy of concern Left breast: Incision clean and dry from prior surgery, the left breast implant moves with movement of the pectoralis muscle. Left axilla: No adenopathy of concern No evidence of recurrent cancer Assessment and Plan Assessment: Impression: 1. Bilateral mastectomy DCIS in the left breast/LCIS in the right breast 2. Patient with bilateral subpectoral implant reconstruction patient has movement of the implants with movement of the pectoral muscle at this time she is seen plastic surgery and is planning to have the implants exchanged 3. No evidence of recurrent cancer at this time 4. History of hypertension Plan: 1. Continue follow-up with Dr. Saunders for implant exchange 2. Follow-up. In 6 months time 3. Patient to call sooner if any questions or concerns CC: Nick Springer PA encounter 15 miutes, > 50% of time spent in planning and counselling Time with Patient: Less than 30
[2019-06-05 12:03] VITALS: BP 124/85; PULSE 105; RESP 16; TEMP 98.2
== END ==
LOC: WWCWWP 10:43
PROVIDERS: ATTEND Surgery
DX: Z53.9 Procedure and treatment not carried out, unspecified reason (principal)

== ENCOUNTER → 2019-12-11 | Outpatient (CLI) | payer BC ==
[2019-12-11 13:38] VITALS: BP 125/85; PULSE 76; RESP 18; TEMP 98.2
--- NOTE | 2019-12-11 14:03 | P.PN ---
Subjective Progress Note Date: 12/11/19 Principal diagnosis: Bilateral mastectomy/DCIS left breast/LCIS right breast The patient is a 48 year old white female status post bilateral mastectomies in approximately December 2015. 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 The patient did not have any chemotherapy or radiation therapy. The patient had been on raloxifene preoperatively secondary to a prior right sided biopsy which showed LCIS. The patient is not taking any antiestrogen agents at this time. The patient had immediate reconstruction following her mastectomies. However she wished to have evaluation secondary to dissatisfaction with the reconstruction. She did have consultation with a plastic surgeon at [facility] regarding a NATY flap. She was informed that she would be in the ICU for several days postprocedure and approximately 5 days in the hospital. At this time she is contemplating whether or not she would like to proceed with that procedure. She then saw DR. Cardenas , but has not yet had the implants exchanged.. He recommended the implants be exchanged. She is planning to do this in the future. The patient has bilateral chest wall discomfort due to related to the implants. She was told that the plastic surgeon felt that the implants were encapsulated and this will be continued to get worse. The pain is described as a muscle ache on the right side and this throughout the breast. It is a stabbing sensation at times and otherwise is a dull muscle ache. The left side is intermittent discomfort. The pain is worse with exercise. It also is worse if she does not wear bra at night. The patient did have BRCA1 testing and this was negative. The patient states there is an area on the right chest wall which feels mobile and masslike following exercise, feels this is related to the implant. The patient has no new nodularity on her chest wall and no concerns of recurrent disease. The patient has no new changes in her pain. Again at this time she is not interested in pursuing the reconstructive procedure at [facility]. She has been seen by Dr. Saunders and will most likely have reconstruction with him. She is not taking raloxifene/ or medication for the breast cancer at this time. She did not have any radiation therapy, and has not had any chemotherapy. Family history: mother: lung brother: melanoma Hormonal History: menarche: 11 : 3, 2 children, first at 24, breast fed: no uterine ablation at 39 without periods after that BCP: no hormones: none Past surgical history: 1. Cholecystectomy 2. Bilateral mastectomy with reconstruction. 3. Appendectomy 4. 5. Right breast lumpectomy prior to bilateral mastectomy 6. Uterine ablation Past medical history: 1. Hypertension Social history: Smoke: Negative Alcohol: Weekends Drugs: Negative Review of systems: HEENT: Negative Lungs: Negative Heart: Negative GI: Negative : Status post uterine ablation at 39 Musculoskeletal: Right chest wall discomfort with exercise related to implants otherwise negative Neurologic: Negative Hematologic: Negative Endocrine: Negative Psychiatric: Negative ALLERGIES: Penicillin and ibuprofen Objective - Vital Signs Vital signs: Vital Signs Temp 98.2 F 12/11/19 13:35 Pulse 76 12/11/19 13:35 Resp 18 12/11/19 13:35 BP 125/85 12/11/19 13:35 Pulse Ox 97 12/11/19 13:35 Intake & Output 12/10/19 12/11/19 12/11/19 18:59 06:59 18:59 Weight 88.904 kg - Exam BMI 33.1 - Constitutional General appearance: Present: average body habitus - EENT Eyes: Present: EOMI ENT: Present: hearing grossly normal - Neck Neck: Present: normal ROM - Respiratory Respiratory: bilateral: CTA - Cardiovascular Rhythm: regular Heart sounds: normal: S1, S2 - Gastrointestinal General gastrointestinal: Present: normal bowel sounds, soft - Integumentary Integumentary: Present: normal turgor - Musculoskeletal Musculoskeletal: Present: gait normal - Psychiatric Psychiatric: Present: A&O x's 3, appropriate affect, intact judgment & insight - Additional findings Additional findings: Breast: BRA: 38C Inspection: Well-healed scars from prior surgery Palpation: Right chest wall: Well-healed scar, implant in place Right axilla: No adenopathy of concern Left breast: Patient status post mastectomy well-healed scar implant in place Left axilla: No adenopathy of concern Assessment and Plan Assessment: Impression: 1. Patient status post bilateral mastectomies left breast DCIS, right breast LCIS 2. Hypertension 3. Patient with encapsulation of implants 4. No evidence of any cancer on the chest wall Plan: 1. Follow-up with Dr. Saunders 2. Follow-up for examination here in 6 months CC: Lyn Mccormick, DR. Héctor george 15 minutes, > 50% of time in planning and counselling
== END | disposition home or self-care (01) ==
LOC: WWCWWP 12:43
PROVIDERS: ATTEND Surgery
DX: Z53.9 Procedure and treatment not carried out, unspecified reason (principal)

== ENCOUNTER → 2020-07-29 | Outpatient (CLI) | payer BC ==
[2020-07-29 10:33] VITALS: BP 121/81; PULSE 82; RESP 18; TEMP 98.2
--- NOTE | 2020-07-29 11:05 | P.PN ---
Subjective Progress Note Date: 07/29/20 Principal diagnosis: Bilateral mastectomies; left DCIS, right LCIS Bilateral mastectomy/DCIS left breast/LCIS right breast The patient is a 48 year old white female status post bilateral mastectomies in approximately December 2015. 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 The patient did not have any chemotherapy or radiation therapy. The patient had been on raloxifene preoperatively secondary to a prior right sided biopsy which showed LCIS. The patient is not taking any antiestrogen agents at this time. The patient had immediate reconstruction following her mastectomies. However she wished to have evaluation secondary to dissatisfaction with the reconstruction. She did have consultation with a plastic surgeon at regarding a NATY flap. She was informed that she would be in the ICU for several days postprocedure and approximately 5 days in the hospital. At this time she is contemplating whether or not she would like to proceed with that procedure. She then saw DR. Cardenas November 2018, but has not yet had the implants exchanged.. He recommended the implants be exchanged. She is planning to do this in the future. The patient has bilateral chest wall discomfort due to related to the implants. She was told that the plastic surgeon felt that the implants were encapsulated and this will be continued to get worse. The pain is described as a muscle ache on the right side and this throughout the breast. It is a stabbing sensation at times and otherwise is a dull muscle ache. The left side is intermittent discomfort. The duration of the achiness has increased. The pain is worse with exercise. It also is worse if she does not wear bra at night. The patient did have BRCA1 testing and this was negative. The patient states there is an area on the right chest wall which feels mobile and masslike following exercise, feels this is related to the implant. The patient has no new nodularity on her chest wall and no concerns of recurrent disease. The patient has no new changes in her pain. Again at this time she is not interested in pursuing the reconstructive proc edure at [place]. She has been seen by Dr. Saunders and will most likely have reconstruction with him. She is not taking raloxifene/ or medication for the breast cancer at this time. She did not have any radiation therapy, and has not had any chemotherapy. She has no gross masses or nodules of concern on either chest wall. The implant removed was delayed secondary to COVID. Family history: mother: lung brother: melanoma Hormonal History: menarche: 11 : 3, 2 children, first at 24, breast fed: no uterine ablation at 39 without periods after that BCP: no hormones: none Past surgical history: 1. Cholecystectomy 2. Bilateral mastectomy with reconstruction. 3. Appendectomy 4. 5. Right breast lumpectomy prior to bilateral mastectomy 6. Uterine ablation Past medical history: 1. Hypertension Social history: Smoke: Negative Alcohol: Weekends Drugs: Negative Review of systems: HEENT: Negative Lungs: Negative Heart: Negative GI: Negative : Status post uterine ablation at 39 Musculoskeletal: Right chest wall discomfort with exercise related to implants otherwise negative Neurologic: Negative Hematologic: Negative Endocrine: Negative Psychiatric: Negative ALLERGIES: Penicillin and ibuprofen Objective - Vital Signs Vital signs: Vital Signs Temp 98.2 F 07/29/20 10:31 Pulse 82 07/29/20 10:31 Resp 18 07/29/20 10:31 BP 121/81 07/29/20 10:31 Pulse Ox 97 07/29/20 10:31 Intake & Output 07/28/20 07/29/20 07/29/20 18:59 06:59 18:59 Weight 86.183 kg - Exam BMI 31.6 - Constitutional General appearance: Present: cooperative - EENT Eyes: Present: EOMI ENT: Present: hearing grossly normal - Neck Neck: Present: normal ROM - Respiratory Respiratory: bilateral: CTA - Cardiovascular Rhythm: regular Heart sounds: normal: S1, S2 - Integumentary Integumentary: Present: normal turgor - Musculoskeletal Musculoskeletal: Present: gait normal - Psychiatric Psychiatric: Present: A&O x's 3, appropriate affect, intact judgment & insight - Additional findings Additional findings: Breast exam: BRA: 40D Inspection: Well-healed scars from prior bilateral mastectomy and reconstruction, patient just got contracture greater on the left than on the right and greater with movement of the pectoralis muscles Palpation: Right chest wall no evidence of any subcutaneous masses or lesions of concern Right axilla: No adenopathy of concern Left chest wall well-healed scars from prior mastectomy and reconstruction no dominant masses or nodules of concern in the subcutaneous tissue patient has contraction however noted greater with flexing of the pectoralis muscle Left axilla: No adenopathy of concern Fungal infection under both breasts Assessment and Plan Assessment: Impression: 1. Bilateral mastectomy left breast DCIS, right breast LCIS 2. No evidence of cancer 3. Bilateral implant reconstruction with contracture greater on the left than the right 2. Fungal infection under both breasts Plan: 1. Follow-up with Dr. Saunders 2. Nystatin cream under the breast 2. Follow-up here in 1 year CC: Lyn Sam
== END ==
LOC: WWCWWP 09:45
PROVIDERS: ATTEND Surgery
DX: B36.8 Other specified superficial mycoses (principal); Z90.13 Acquired absence of bilateral breasts and nipples; I10 Essential (primary) hypertension; Z85.3 Personal history of malignant neoplasm of breast; Z42.1 Encounter for breast reconstruction following mastectomy

== ENCOUNTER → 2021-07-28 | Outpatient (CLI) | payer BC ==
[2021-07-28 09:49] VITALS: BP 118/81; PULSE 79; RESP 12; TEMP 98.4
--- NOTE | 2021-07-28 10:12 | P.PN ---
Subjective Progress Note Date: 07/28/21 Principal diagnosis: Bilateral mastectomies; left DCIS, right LCIS Bilateral mastectomies; left DCIS, right LCIS The patient is a 50 year old white female status post bilateral mastectomies in approximately December 2015. She was noted to have left-sided DCIS a mastectomy and a sentinel node biopsy was performed which was negative for cancer she also had a right-sided mastectomy was told she had LCIS on that side. The patient did not have any chemotherapy or radiation therapy. The patient had been on raloxifene preoperatively secondary to a prior right sided biopsy which showed LCIS. The patient is not taking any antiestrogen agents at this time. The patient had immediate reconstruction following her mastectomies. However she wished to have evaluation secondary to dissatisfaction with the reconstruction. She did have consultation with a plastic surgeon at [facility] regarding a NATY flap. She was informed that she would be in the ICU for several days postprocedure and approximately 5 days in the hospital. At this time she is contemplating whether or not she would like to proceed with that procedure. She then saw DR. Cardenas November 2018, but has not yet had the implants exchanged.. He recommended the implants be exchanged. She is planning to do this in the future. The patient has bilateral chest wall discomfort due to related to the implants. She was told by the plastic surgeon felt that the implants were encapsulated and this will be continued to get worse. The pain is described as a muscle ache on the right side and this throughout the chest wall. It is a stabbing sensation at times and otherwise is a dull muscle ache. The left side is intermittent discomfort. The duration of the achiness has increased. The pain is worse with exercise. It also is worse if she does not wear bra at night. The patient did have BRCA1 testing and this was negative. The patient states there is an area on the right chest wall which feels mobile and masslike following exercise, feels this is related to the implant. The patient has no new nodularity on her chest wall and no concerns of recurrent disease. The patient has no new changes in her pain. Again at this time she is not interested in pursuing the reconstructive proc edure at [place]. She has been seen by Dr. Saunders and will most likely have reconstruction with him. She is not taking raloxifene/ or medication for the breast cancer at this time. She did not have any radiation therapy, and has not had any chemotherapy. She has no gross masses or nodules of concern on either chest wall. 07-28-21 She had her implants removed August 2020. She had expanders placed in the new implants placed in December 2020. She states they were doing well until the past several months when the pain started back again. She was given the option by plastic surgery to have the implants removed and go flat, otherwise to tolerate the pain. The pain is a dull ache on the right side. The pain occurs daily, but is not constant. It also seems to ache down her right arm. She is not complaining of any lumps masses or nodules on either chest wall. The implant removed was delayed initially secondary to COVID. Family history: mother: lung brother: melanoma Hormonal History: menarche: 11 : 3, 2 children, first at 24, breast fed: no uterine ablation at 39 without periods after that BCP: no hormones: none Past surgical history: 1. Cholecystectomy 2. Bilateral mastectomy with reconstruction. 3. Appendectomy 4. 5. Right breast lumpectomy prior to bilateral mastectomy 6. Uterine ablation Past medical history: 1. Hypertension Social history: Smoke: Negative Alcohol: Weekends Drugs: Negative Review of systems: HEENT: Negative Lungs: Negative Heart: Negative GI: Negative : Status post uterine ablation at 39 Musculoskeletal: Right chest wall discomfort with exercise related to implants otherwise negative Neurologic: Negative Hematologic: Negative Endocrine: Negative Psychiatric: Negative ALLERGIES: Penicillin and ibuprofen Objective - Vital Signs Vital signs: Vital Signs Temp 98.4 F 07/28/21 09:44 Pulse 79 07/28/21 09:44 Resp 12 07/28/21 09:44 BP 118/81 07/28/21 09:44 Pulse Ox 100 07/28/21 09:44 Intake & Output 07/27/21 07/28/21 07/28/21 18:59 06:59 18:59 Weight 88.451 kg - Exam BMI: 32.4 - Constitutional General appearance: Present: cooperative - EENT Eyes: Present: EOMI ENT: Present: hearing grossly normal - Neck Neck: Present: normal ROM - Respiratory Respiratory: bilateral: CTA - Cardiovascular Rhythm: regular Heart sounds: normal: S1, S2 - Integumentary Integumentary: Present: normal turgor - Musculoskeletal Musculoskeletal: Present: gait normal - Psychiatric Psychiatric: Present: A&O x's 3, appropriate affect, intact judgment & insight - Additional findings Additional findings: Breast Exam: BRA: 38C inspection: bilateral grade 2/3 ptosis palpation: Right chest wall: Multi-positional exam no evidence of recurrent cancer on the chest wall, the nipple areolar complex has been re-created via tattooing and surgery and looks very natural Right axilla: No adenopathy of concern Left chest wall: Multi-positional exam no evidence of recurrent cancer, the nipple areolar complexes been re-created via tattooing and surgery looks very natural Left axilla: No adenopathy of concern The reconstructed breasts are slightly boxy but otherwise they look very cosmetically good Tenderness appears to be muscle tenderness related to the stretching sensation from the implants Assessment and Plan Assessment: Impression: Bilateral mastectomy right breast DCIS, left breast LCIS no evidence of recurrent cancer Recent exchange of implants patient had gotten better from the chest wall pain but approximately 2 months ago she began experiencing some right chest wall discomfort again this appears to be musculoskeletal in nature and she has been seen and evaluated by plastic surgery for this as well Plan: Follow-up examination in one year Patient will follow up with plastic surgery if she decides to have the implants removed and flat at this time she is not ready for that CC: Dr. Lyn Mccormick
== END ==
LOC: WWCWWP 09:37
PROVIDERS: ATTEND Surgery
DX: Z08 Encounter for follow-up examination after completed treatment for malignant neoplasm (principal); Z85.3 Personal history of malignant neoplasm of breast; I10 Essential (primary) hypertension; R07.89 Other chest pain; Z88.0 Allergy status to penicillin; Z88.6 Allergy status to analgesic agent; Z90.13 Acquired absence of bilateral breasts and nipples

== ENCOUNTER → 2022-08-02 | Outpatient (CLI) | payer OTHER ==
[2022-08-02 14:02] VITALS: BP 109/68; PULSE 124; RESP 17; TEMP 97.6
--- NOTE | 2022-08-02 14:17 | P.PN ---
Subjective Progress Note Date: 08/02/22 Principal diagnosis: left breast DCIS, right breast LCIS Bilateral mastectomies; left DCIS, right LCIS The patient is a 50 year old white female status post bilateral mastectomies in approximately December 2015. She was noted to have left-sided DCIS a mastectomy and a sentinel node biopsy was performed which was negative for cancer she also had a right-sided mastectomy was told she had LCIS on that side. The patient did not have any chemotherapy or radiation therapy. The patient had been on raloxifene preoperatively secondary to a prior right sided biopsy which showed LCIS. The patient is not taking any antiestrogen agents at this time. The patient had immediate reconstruction following her mastectomies. However she wished to have evaluation secondary to dissatisfaction with the reconstruction. She did have consultation with a plastic surgeon at [facility] regarding a NATY flap. She was informed that she would be in the ICU for several days postprocedure and approximately 5 days in the hospital. At this time she is contemplating whether or not she would like to proceed with that procedure. She then saw DR. Cardenas November 2018, but has not yet had the implants exchanged.. He recommended the implants be exchanged. She is planning to do this in the future. The patient has bilateral chest wall discomfort due to related to the implants. She was told by the plastic surgeon felt that the implants were encapsulated and this will be continued to get worse. The pain is described as a muscle ache on the right side and this throughout the chest wall. It is a stabbing sensation at times and otherwise is a dull muscle ache. The left side is intermittent discomfort. The duration of the achiness has increased. The pain is worse with exercise. It also is worse if she does not wear bra at night. The patient did have BRCA1 testing and this was negative. The patient states there is an area on the right chest wall which feels mobile and masslike following exercise, feels this is related to the implant. The patient has no new nodularity on her chest wall and no concerns of recurrent disease. The patient has no new changes in her pain. Again at this time she is not interested in pursuing the reconstructive procedure at [place]. She has been seen by Dr. Saunders and will most likely have reconstruction with him. She is not taking raloxifene/ or medication for the breast cancer at this time. She did not have any radiation therapy, and has not had any chemotherapy. She has no gross masses or nodules of concern on either chest wall. 07-28-21 She had her implants removed August 2020. She had expanders placed in the new implants placed in December 2020. She states they were doing well until the past several months when the pain started back again. She was given the option by plastic surgery to have the implants removed and go flat, otherwise to tolerate the pain. The pain is a dull ache on the right side. The pain occurs daily, but is not constant. It also seems to ache down her right arm. She is not complaining of any lumps masses or nodules on either chest wall. The implant removed was delayed initially secondary to COVID. 08-02-22 Gali is a 51 year old white female status post bilateral mastectomies in 2015. The left breast had DCIS and the right breast LCIS. She was genetic testing prior to her surgery and she was negative. She initially had bilateral subpectoral implants placed however these were uncomfortable and they were changed to prepectoral implants and these were placed in December 2020. She was having some discomfort related to those which has improved she saw the plastic surgeon was given the option of going flap versus tolerating the discomfort and the discomfort has improved. At this time she is going to continue with her present status. Family history: mother: lung brother: melanoma Hormonal History: menarche: 11 : 3, 2 children, first at 24, breast fed: no uterine ablation at 39 without periods after that BCP: no hormones: none Past surgical history: 1. Cholecystectomy 2. Bilateral mastectomy with reconstruction. 3. Appendectomy 4. 5. Right breast lumpectomy prior to bilateral mastectomy 6. Uterine ablation Past medical history: 1. Hypertension Social history: Smoke: Negative Alcohol: Weekends Drugs: Negative Review of systems: HEENT: Negative Lungs: Negative Heart: Negative GI: Negative : Status post uterine ablation at 39 Musculoskeletal: Right chest wall discomfort with exercise related to implants otherwise negative Neurologic: Negative Hematologic: Negative Endocrine: Negative Psychiatric: Negative ALLERGIES: Penicillin and ibuprofen Objective - Vital Signs Vital signs: Vital Signs Temp 97.6 F 08/02/22 13:59 Pulse 124 H 08/02/22 13:59 Resp 17 08/02/22 13:59 BP 109/68 08/02/22 13:59 Pulse Ox 97 08/02/22 13:59 FiO2 Intake & Output 08/01/22 08/02/22 08/02/22 18:59 06:59 18:59 Weight 88.451 kg - Constitutional General appearance: Present: cooperative - EENT Eyes: Present: EOMI ENT: Present: hearing grossly normal - Neck Neck: Present: normal ROM - Respiratory Respiratory: bilateral: CTA - Cardiovascular Rhythm: regular - Gastrointestinal General gastrointestinal: Present: soft - Integumentary Integumentary: Present: normal turgor - Musculoskeletal Musculoskeletal: Present: gait normal - Psychiatric Psychiatric: Present: A&O x's 3, appropriate affect, intact judgment & insight - Additional findings Additional findings: Breast Exam: BRA: 38C inspection: bilateral grade 2/3 ptosis palpation: Right chest wall: Multi-positional exam no evidence of recurrent cancer on the chest wall, the nipple areolar complex has been re-created via tattooing and herrera rgery and looks very natural Right axilla: No adenopathy of concern Left chest wall: Multi-positional exam no evidence of recurrent cancer, the nipple areolar complexes been re-created via tattooing and surgery looks very natural Left axilla: No adenopathy of concern The reconstructed breasts are slightly boxy but otherwise they look very cosmetically good NO tenderness on exams today Assessment and Plan Assessment: Impression: Bilateral mastectomy right breast DCIS, left breast LCIS no evidence of recurrent cancer Plan: Follow-up examination in one year Patient will follow up with plastic surgery if she decides to have the implants removed and flat at this time she is not ready for that CC: Dr. Lyn Mccormick
== END ==
LOC: WWCWWP 13:44
PROVIDERS: ATTEND Surgery
DX: D05.11 Intraductal carcinoma in situ of right breast (principal); D05.12 Intraductal carcinoma in situ of left breast; I10 Essential (primary) hypertension; R07.89 Other chest pain; Z88.0 Allergy status to penicillin; Z88.6 Allergy status to analgesic agent; Z90.13 Acquired absence of bilateral breasts and nipples; Z90.49 Acquired absence of other specified parts of digestive tract; Z79.899 Other long term (current) drug therapy

== ENCOUNTER → 2023-08-02 | Outpatient (CLI) | payer OTHER ==
--- NOTE | 2023-08-02 12:31 | P.PN ---
Subjective Progress Note Date: 08/02/23 Principal diagnosis: left breast DCIS, right breast LCIS 2016 Bilateral mastectomies; left DCIS, right LCIS The patient is a 50 year old white female status post bilateral mastectomies in approximately December 2015. She was noted to have left-sided DCIS a mastectomy and a sentinel node biopsy was performed which was negative for cancer she also had a right-sided mastectomy was told she had LCIS on that side. The patient did not have any chemotherapy or radiation therapy. The patient had been on raloxifene preoperatively secondary to a prior right sided biopsy which showed LCIS. The patient is not taking any antiestrogen agents at this time. The patient had immediate reconstruction following her mastectomies. However she wished to have evaluation secondary to dissatisfaction with the reconstruction. She did have consultation with a plastic surgeon at [facility] regarding a NATY flap. She was informed that she would be in the ICU for several days postprocedure and approximately 5 days in the hospital. At this time she is contemplating whether or not she would like to proceed with that procedure. She then saw DR. Cardenas November 2018, but has not yet had the implants exchanged.. He recommended the implants be exchanged. She is planning to do this in the future. The patient has bilateral chest wall discomfort due to related to the implants. She was told by the plastic surgeon felt that the implants were encapsulated and this will be continued to get worse. The pain is described as a muscle ache on the right side and this throughout the chest wall. It is a stabbing sensation at times and otherwise is a dull muscle ache. The left side is intermittent discomfort. The duration of the achiness has increased. The pain is worse with exercise. It also is worse if she does not wear bra at night. The patient did have BRCA1 testing and this was negative. The patient states there is an area on the right chest wall which feels mobile and masslike following exercise, feels this is related to the implant. The patient has no new nodularity on her chest wall and no concerns of recurrent disease. The patient has no new changes in her pain. Again at this time she is not interested in pursuing the reconstructive procedure at [place]. She has been seen by Dr. Saunders and will most likely have reconstruction with him. She is not taking raloxifene/ or medication for the breast cancer at this time. She did not have any radiation therapy, and has not had any chemotherapy. She has no gross masses or nodules of concern on either chest wall. 07-28-21 She had her implants removed August 2020. She had expanders placed in the new implants placed in December 2020. She states they were doing well until the past several months when the pain started back again. She was given the option by plastic surgery to have the implants removed and go flat, otherwise to tolerate the pain. The pain is a dull ache on the right side. The pain occurs daily, but is not constant. It also seems to ache down her right arm. She is not complaining of any lumps masses or nodules on either chest wall. The implant removed was delayed initially secondary to COVID. 08-02-22 Gali is a 51 year old white female status post bilateral mastectomies in 2015. The left breast had DCIS and the right breast LCIS. She was genetic testing prior to her surgery and she was negative. She initially had bilateral subpectoral implants placed however these were uncomfortable and they were changed to prepectoral implants and these were placed in December 2020. She was having some discomfort related to those which has improved she saw the plastic surgeon was given the option of going flat versus tolerating the discomfort and the discomfort has improved. At this time she is going to continue with her present status. 08-02-23 Gali is a 51 year old white female status post bilateral mastectomies in 2015. The left breast had DCIS and the right breast LCIS. She was genetic testing prior to her surgery and she was negative. She initially had bilateral subpectoral implants placed however these were uncomfortable and they were changed to prepectoral implants and these were placed in December 2020. She was having some discomfort which has resolved. She is still not satisfied with the cosmetic results. At this time she is going to continue with her present status. Family history: mother: lung brother: melanoma Hormonal History: menarche: 11 : 3, 2 children, first at 24, breast fed: no uterine ablation at 39 without periods after that BCP: no hormones: none Past surgical history: 1. Cholecystectomy 2. Bilateral mastectomy with reconstruction. 3. Appendectomy 4. 5. Right breast lumpectomy prior to bilateral mastectomy 6. Uterine ablation Past medical history: 1. Hypertension Social history: Smoke: Negative Alcohol: Weekends Drugs: Negative Review of systems: HEENT: Negative Lungs: Negative Heart: Negative GI: Negative : Status post uterine ablation at 39 Musculoskeletal: Right chest wall discomfort with exercise related to implants otherwise negative Neurologic: Negative Hematologic: Negative Endocrine: Negative Psychiatric: Negative ALLERGIES: Penicillin and ibuprofen Objective - Vital Signs Vital signs: Vital Signs Temp 97.9 F 08/02/23 12:10 Pulse 79 08/02/23 12:10 Resp 16 08/02/23 12:10 BP 127/84 08/02/23 12:10 Pulse Ox 98 08/02/23 12:10 FiO2 Intake & Output 08/01/23 08/02/23 08/02/23 18:59 06:59 18:59 Weight 88.451 kg - Constitutional General appearance: Present: cooperative - EENT Eyes: Present: EOMI ENT: Present: hearing grossly normal - Neck Neck: Present: normal ROM - Respiratory Respiratory: bilateral: CTA - Cardiovascular Heart sounds: normal: S1, S2 - Gastrointestinal General gastrointestinal: Present: soft - Integumentary Integumentary: Present: normal turgor - Musculoskeletal Musculoskeletal: Present: gait normal - Psychiatric Psychiatric: Present: A&O x's 3, appropriate affect, intact judgment & insight - Additional findings Additional findings: Breast Exam: BRA: 38C inspection: bilateral mastectomies palpation: Right chest wall: Multi-positional exam no evidence of recurrent cancer on the chest wall, the nipple areolar complex has been re-created via tattooing and surgery and looks very natural Right axilla: No adenopathy of concern Left chest wall: Multi-positional exam no evidence of recurrent cancer, the nipple areolar complexes been re-created via tattooing and surgery looks very natural Left axilla: No adenopathy of concern The reconstructed breasts are slightly boxy but otherwise they look very cosmetically good NO tenderness on exams today Assessment and Plan Assessment: Impression: Bilateral mastectomy right breast DCIS, left breast LCIS no evidence of recurrent cancer Plan: Follow-up examination in one year Patient will follow up with plastic surgery if she decides to have the implants removed and flat at this time she is not ready for that CC: Dr. Lyn Mccormick
[2023-08-02 12:34] VITALS: BP 127/84; PULSE 79; RESP 16; TEMP 97.9
== END ==
LOC: WWCWWP 11:41
PROVIDERS: ATTEND Surgery
DX: D05.11 Intraductal carcinoma in situ of right breast (principal); D05.12 Intraductal carcinoma in situ of left breast; R07.89 Other chest pain; Z90.13 Acquired absence of bilateral breasts and nipples; Z88.0 Allergy status to penicillin; Z88.6 Allergy status to analgesic agent

== ENCOUNTER → 2024-09-04 | Outpatient (CLI) | payer OTHER ==
[2024-09-04 14:01] VITALS: BP 106/68; PULSE 105; RESP 17; TEMP 97.9
--- NOTE | 2024-09-04 14:09 | P.PN ---
Subjective Progress Note Date: 09/04/24 Principal diagnosis: left breast DCIS, right breast LCIS 2016 Bilateral mastectomies; left DCIS, right LCIS 08/02/23 Principal diagnosis: left breast DCIS, right breast LCIS 2016 Bilateral mastectomies; left DCIS, right LCIS The patient is a 50 year old white female status post bilateral mastectomies in approximately December 2015. She was noted to have left-sided DCIS a mastectomy and a sentinel node biopsy was performed which was negative for cancer she also had a right-sided mastectomy was told she had LCIS on that side. The patient did not have any chemotherapy or radiation therapy. The patient had been on raloxifene preoperatively secondary to a prior right sided biopsy which showed LCIS. The patient is not taking any antiestrogen agents at this time. The patient had immediate reconstruction following her mastectomies. However she wished to have evaluation secondary to dissatisfaction with the reconstruction. She did have consultation with a plastic surgeon at [facility] regarding a NATY flap. She was informed that she would be in the ICU for several days postprocedure and approximately 5 days in the hospital. At this time she is contemplating whether or not she would like to proceed with that procedure. She then saw DR. Cardenas November 2018, but has not yet had the implants exchanged.. He recommended the implants be exchanged. She is planning to do this in the future. The patient has bilateral chest wall discomfort due to related to the implants. She was told by the plastic surgeon felt that the implants were encapsulated and this will be continued to get worse. The pain is described as a muscle ache on the right side and this throughout the chest wall. It is a stabbing sensation at times and otherwise is a dull muscle ache. The left side is intermittent discomfort. The duration of the achiness has increased. The pain is worse with exercise. It also is worse if she does not wear bra at night. The patient did have BRCA1 testing and this was negative. The patient states there is an area on the right chest wall which feels mobile and masslike following exercise, feels this is related to the implant. The patient has no new nodularity on her chest wall and no concerns of recurrent disease. The patient has no new changes in her pain. Again at this time she is not interested in pursuing the reconstructive procedure at [place]. She has been seen by Dr. Saunders and will most likely have reconstruction with him. She is not taking raloxifene/ or medication for the breast cancer at this time. She did not have any radiation therapy, and has not had any chemotherapy. She has no gross masses or nodules of concern on either chest wall. 07-28-21 She had her implants removed August 2020. She had expanders placed in the new implants placed in December 2020. She states they were doing well until the past several months when the pain started back again. She was given the option by plastic surgery to have the implants removed and go flat, otherwise to tolerate the pain. The pain is a dull ache on the right side. The pain occurs daily, but is not constant. It also seems to ache down her right arm. She is not complaining of any lumps masses or nodules on either chest wall. The implant removed was delayed initially secondary to COVID. 08-02-22 Gali is a 51 year old white female status post bilateral mastectomies in 2015. The left breast had DCIS and the right breast LCIS. She was genetic testing prior to her surgery and she was negative. She initially had bilateral subpectoral implants placed however these were uncomfortable and they were changed to prepectoral implants and these were placed in December 2020. She was having some discomfort related to those which has improved she saw the plastic surgeon was given the option of going flat versus tolerating the discomfort and the discomfort has improved. At this time she is going to continue with her present status. 08-02-23 Gali is a 51 year old white female status post bilateral mastectomies in 2015. The left breast had DCIS and the right breast LCIS. She was genetic testing prior to her surgery and she was negative. She initially had bilateral subpectoral implants placed however these were uncomfortable and they were changed to prepectoral implants and these were placed in December 2020. She was having some discomfort which has resolved. She is still not satisfied with the cosmetic results. At this time she is going to continue with her present status. 09 04 24 Gali is a 54-year-old female status post bilateral mastectomies in 2015. The left breast had DCIS in the right breast had LCIS. She had genetic testing prior to the surgery and was negative. She initially had bilateral subpectoral implants placed however these were uncomfortable and were changed to prepectoral implants in December 2020. She believes that the right breast is now smaller than the left breast. Family history: mother: lung brother: melanoma Hormonal History: menarche: 11 : 3, 2 children, first at 24, breast fed: no uterine ablation at 39 without periods after that BCP: no hormones: none Past surgical history: 1. Cholecystectomy 2. Bilateral mastectomy with reconstruction. 3. Appendectomy 4. 5. Right breast lumpectomy prior to bilateral mastectomy 6. Uterine ablation Past medical history: 1. Hypertension Social history: Smoke: Negative Alcohol: Weekends Drugs: Negative Review of systems: HEENT: Negative Lungs: Negative Heart: Negative GI: Negative : Status post uterine ablation at 39 Musculoskeletal: Right chest wall discomfort with exercise related to implants otherwise negative Neurologic: Negative Hematologic: Negative Endocrine: Negative Psychiatric: Negative ALLERGIES: Penicillin and ibuprofen Objective - Vital Signs Vital signs: Intake & Output 09/03/24 09/04/24 09/04/24 18:59 06:59 18:59 Weight 88.451 kg - Constitutional General appearance: Present: cooperative - EENT Eyes: Present: EOMI ENT: Present: hearing grossly normal - Neck Neck: Present: normal ROM - Respiratory Respiratory: bilateral: CTA - Cardiovascular Rhythm: regular Heart sounds: normal: S1, S2 - Integumentary Integumentary: Present: normal turgor - Musculoskeletal Musculoskeletal: Present: gait normal - Psychiatric Psychiatric: Present: A&O x's 3, appropriate affect, intact judgment & insight - Additional findings Additional findings: Breast Exam: BRA: 38C inspection: bilateral mastectomies; the right breast seems to be smaller than the left and the patient believes that that has become more prominently so recently palpation: Right chest wall: Multi-positional exam no evidence of recurrent cancer on the chest wall, the nipple areolar complex has been re-created via tattooing and surgery and looks very natural; some crepitus with examination the implant is much less firm than on the contralateral side Right axilla: No adenopathy of concern Left chest wall: Multi-positional exam no evidence of recurrent cancer, the nipple areolar complexes been re-created via tattooing and surgery looks very natural Left axilla: No adenopathy of concern The reconstructed breasts are slightly boxy but otherwise they look very cosmetically good NO tenderness on exams today No dominant masses or nodules of concern in either breast Assessment and Plan Assessment: Impression: Bilateral mastectomy right breast DCIS, left breast LCIS no evidence of recurrent cancer Discrepancy in the firmness of the implants the right being less firm than the left with some crepitus on examination raising the question of whether there is some leakage of the right breast implant These are believed to be silicone implants Plan: MRI of the breast rule out implant leaking Follow-up after MRI CC: Dr. Lyn Mccormick
== END ==
LOC: WWCWWP 13:50
PROVIDERS: ATTEND Surgery
DX: D05.12 Intraductal carcinoma in situ of left breast (principal); D05.11 Intraductal carcinoma in situ of right breast; Z88.0 Allergy status to penicillin; Z88.6 Allergy status to analgesic agent